=== PATIENT | male | born 1955 | race Asian ===

== ENCOUNTER 2019-03-02 09:54 | Emergency (ER) | payer SELFPAY ==
[2019-03-02] MEDS ORDERED: LIDOCAINE VISCOUS 2% SOLN 15 ML UDC ONE (12:33)
[2019-03-02] MEDS ORDERED: ONDANSETRON 4 MG/2 ML VIAL ONE (12:33)
[2019-03-02] MEDS ORDERED: MAGNE/ALUM HYDROXD 30 ML UCUP ONE (12:33)
[2019-03-02 12:44] LABS: Absolute Lymphocytes (CBC) 0.8 K/uL (0.7-4.9); Absolute Monocytes 0.2 K/uL (0.1-1.3); Absolute Neutrophil 6.5 K/uL (1.8-8.0); Basophils % 0.4 % (0-1.3); Eosinophils % 0.5 % (0-4.4); Hematocrit 49.7 % (39.6-49.0); Lymphocytes % 10.6 % (15.3-44.8); MPV 8.5 fL (7.6-11.3); RBC Red Blood Cell Count 5.51 M/uL (4.33-5.43)
--- NOTE | 2019-03-02 12:59 | RAD REPORT ---
EXAM DESCRIPTION: US - Abdomen Exam Limited - 03/02/2019 12:40 pm CLINICAL HISTORY: Abdominal pain COMPARISON: None. FINDINGS: No gallstones, sludge or other abnormalities within the gallbladder lumen. There is no wal l thickening or pericholecystic fluid. No common duct stone or biliary tree dilatation identified. IMPRESSION: Normal gallbladder and biliary tree ultrasound.
[2019-03-02 13:02] LABS: ALT/SGPT 34 U/L (12-78); AST/SGOT 22 U/L (15-37); Alkaline Phosphatase 74 U/L (45-117); BUN Blood Urea Nitrogen 12 mg/dL (7-18); Bicarbonate 29 mmol/L (21-32); Bilirubin Direct 0.1 mg/dL (0-0.2); Bilirubin Total 0.5 mg/dL (0.2-1.0); Glucose Level 103 mg/dL (74-106); Lipase 166 U/L (73-393); Protein, Total 7.9 g/dL (6.4-8.2); Sodium Level 138 mmol/L (136-145); Troponin (Emerg Dept Use Only) < 0.02 ng/mL (0.0-0.045)
--- NOTE | 2019-03-02 13:44 | EKG ---
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
[2019-03-02 13:47] LABS: Blood Morphology Comment NOT SEEN (NOT SEEN); Platelet Estimate ADEQ; Urine White Blood Cell Casts OK
--- NOTE | 2019-03-02 13:52 | EDPHYS ---
Physician Documentation [facility] Name: River Daniels Age: 64 yrs Sex: Male : 1955 Arrival Date: 03/02/2019 Time: 09:56 Bed 19 Private MD: Unknown, Unknown ED Physician Raf Sears HPI: 03/02 12:09 This 64 yrs old Male presents to ER via Wheelchair with complaints of Chest Pain, rn Abdominal Pain. 12:12 The patient presents with abdominal pain in the epigastric area. Onset: The rn symptoms/episode began/occurred. 12:13 Onset: The symptoms/episode began/occurred 2 month(s) ago. The symptoms radiate to rn chest. Associated signs and symptoms: Pertinent positives: nausea and vomiting, Pertinent negatives: blood in stools, fever. Modifying factors: The symptoms are alleviated by nothing, the symptoms are aggravated by food. Severity of pain: At its worst the pain was mild in the emergency department the pain is unchanged. The patient has experienced similar episodes in the past. Reports 2 months of epigastric burning that radiates to chest, assoc with nausea/vomiting, no black or bloody stool, no sob, reports tried antacid 1 time and only temporary relief. Intermittent pain. Reports abd pain worse approx 30 min or 1 hour after eating.. Historical: - Allergies: 10:15 No Known Allergies; aa5 - Home Meds: 10:15 esomeprazole magnesium oral oral [Active]; aa5 - PMHx: 10:15 None; aa5 - PSHx: 10:15 None; aa5 - Immunization history:: Flu vaccine is not up to date. - Social history:: Smoking status: Patient/guardian denies using tobacco. - Ebola Screening: : No symptoms or risks identified at this time. - Family history:: not pertinent. - Hospitalizations: : No recent hospitalization is reported. ROS: 12:13 Constitutional: Negative for fever, chills, and weight loss, Eyes: Negative for injury, rn pain, redness, and discharge, Neck: Negative for injury, pain, and swelling, Cardiovascular: Negative for palpitations, and edema, Respiratory: Negative for shortness of breath, cough, wheezing, and pleuritic chest pain, Abdomen/GI: + abd pain/nausea/vomiting MS/Extremity: Negative for injury and deformity, Skin: Negative for injury, rash, and discoloration, Neuro: Negative for headache, numbness, tingling, and seizure. Exam: 12:13 Constitutional: Thin male, no acute distress. Head/Face: Normocephalic, atraumatic. rn Eyes: Pupils equal round and reactive to light, extra-ocular motions intact. Lids and lashes normal. Conjunctiva and sclera are non-icteric and not injected. Cornea within normal limits. Periorbital areas with no swelling, redness, or edema. Cardiovascular: Regular rate and rhythm. No pulse deficits. Respiratory: No increased work of breathing, no retractions or nasal flaring. Abdomen/GI: soft, mild epigastric tenderness, no rebound, neg mayo Skin: Warm, dry with normal turgor. Normal color with no rashes, no lesions, and no evidence of cellulitis. MS/ Extremity: Pulses equal, no cyanosis. Neurovascular intact. Full, normal range of motion. Equal circumference. Neuro: Awake and alert, GCS 15, oriented to person, place, time, and situation. Cranial nerves II-XII grossly intact. Motor strength 5/5 in all extremities. Sensory grossly intact. 13:49 ECG was reviewed by the Attending Physician. rn Vital Signs: 10:15 BP 111 / 86; Pulse 89; Resp 16 S; Temp 98.2(TE); Pulse Ox 98% on R/A; Weight 60.33 kg aa5 (R); Height 5 ft. 5 in. (165.10 cm) (R); Pain 8/10; 11:55 BP 125 / 78; Pulse 84; Resp 18; Pulse Ox 99% ; sv 10:15 Body Mass Index 22.13 (60.33 kg, 165.10 cm) aa5 MDM: 11:58 Patient medically screened. rn 13:49 Differential diagnosis: cholecystitis, Cholelithiasis, gastritis, gastroesophageal rn reflux disease, non-specific abd pain, pancreatitis. Data reviewed: vital signs, nurses notes, lab test result(s), EKG, radiologic studies, ultrasound, and as a result, I will discharge patient. Counseling: I had a detailed discussion with the patient and/or guardian regarding: the historical points, exam findings, and any diagnostic results supporting the discharge/admit diagnosis, lab results, radiology results, the need for outpatient follow up, to return to the emergency department if symptoms worsen or persist or if there are any questions or concerns that arise at home. Medical screen evaluation completed. EMTALA emergency medical condition absent. Response to treatment: the patient's symptoms have mildly improved after treatment, and as a result, I will discharge patient. Special discussion: Based on the patient's Hx, exam, and Dx evaluation, there is no indication for emergent surgery or inpatient Tx. It is understood by the patient/guardian that if the Sx's persist or worsen they need to return immediately for re-evaluation. I discussed with the patient/guardian in detail that at this point there is no indication for admission to the hospital. It is understood, however, that if the symptoms persist or worsen the patient needs to return immediately for re-evaluation. 14:00 ED course: Pt states saw doctor last week, recommended endoscopy because he thought was rn GERD, too expensive in [place], patient plans to go to [facility] next month to get endoscopy. . 03/02 12:08 Order name: Basic Metabolic Panel; Complete Time: 13: rn 03/02 12:08 Order name: CBC with Diff; Complete Time: 13:49 rn 03/02 12:08 Order name: Hepatic Function; Complete Time: 13: rn 03/02 12:08 Order name: Lipase; Complete Time: 13: rn 03/02 12:08 Order name: Troponin (emerg Dept Use Only); Complete Time: 13: rn 03/02 12:52 Order name: CBC Smear Scan; Complete Time: 13:49 EDMS 03/02 12:08 Order name: IV Saline Lock; Complete Time: 12:03/02 12:08 Order name: Labs collected and sent; Complete Time: 12: rn 03/02 12:08 Order name: US Abdomen Limited; Complete Time: 13:03/02 12:08 Order name: EKG; Complete Time: 12: rn 03/02 12:08 Order name: EKG - Nurse/Tech; Complete Time: 12:31 rn EC:49 Rate is 77 beats/min. Rhythm is regular. QRS [place] is Normal. [place] interval is normal. QRS rn interval is normal. QT interval is normal. No Q waves. T waves are Normal. No ST changes noted. Clinical impression: Normal ECG. Interpreted by me. Administered Medications: 12:31 Drug: Zofran 4 mg Route: IVP; Site: right antecubital; sv 13:00 Follow up: Response: No adverse reaction; Marked relief of symptoms; Nausea is decreasedsv 13:09 Drug: GI Cocktail without - (Maalox Suspension 30 ml, Lidocaine Liquid 2 % 15 sv ml) Route: PO; 14:05 Follow up: Response: No adverse reaction sv Disposition: 03/02/19 13:51 Discharged to Home. Impression: Gastritis, unspecified, Gastro-esophageal reflux disease. - Condition is Stable. - Discharge Instructions: Gastritis, Adult, Gastroesophageal Reflux Disease, Adult. - Prescriptions for Zantac 300 mg Oral Tablet - take 1 tablet by ORAL route At bedtime; 30 tablet. - Medication Reconciliation Form, Thank You Letter, Antibiotic Education, Prescription Opioid Use form. - Follow up: Richie Potts MD; When: As needed; Reason: Recheck today's complaints, Re-evaluation by your physician. - Problem is an ongoing problem. - Symptoms have improved. Signatures: Dispatcher [employer] Gabi Rivas RN RN sv Nieto, Roman, MD MD rn Calderon, Audri, RN RN aa5 Corrections: (The following items were deleted from the chart) 13:52 13:51 03/02/2019 13:51 Discharged to Home. Impression: Gastritis, unspecified. rn Condition is Stable. Forms are Medication Reconciliation Form, Thank You Letter, Antibiotic Education, Prescription Opioid Use. Follow up: Richie Potts; When: As needed; Reason: Recheck today's complaints, Re-evaluation by your physician. Problem is an ongoing problem. Symptoms have improved. rn 14:08 13:52 03/02/2019 13:51 Discharged to Home. Impression: Gastritis, unspecified; aa5 Gastro-esophageal reflux disease. Condition is Stable. Forms are Medication Reconciliation Form, Thank You Letter, Antibiotic Education, Prescription Opioid Use. Follow up: Richie Potts; When: As needed; Reason: Recheck today's complaints, Re-evaluation by your physician. Problem is an ongoing problem. Symptoms have improved. rn
--- NOTE | 2019-03-02 13:52 | ER ---
Nurse's Notes [facility] Name: River Daniels Age: 64 yrs Sex: Male : 1955 Arrival Date: 03/02/2019 Time: 09:56 Bed 19 Private MD: Unknown, Unknown Diagnosis: Gastritis, unspecified;Gastro-esophageal reflux disease Presentation: 03/02 10:13 Presenting complaint: Patient states: "about 2 months ago I ate some beef and my aa5 stomach started hurting and the doctor gave me esomeprazole". pt c/o abd pain and chest pain described as burning. Reports nausea. Transition of care: patient was not received from another setting of care. Onset of symptoms was 2018. Risk Assessment: Do you want to hurt yourself or someone else? Patient reports no desire to harm self or others. Initial Sepsis Screen: Does the patient meet any 2 criteria? No. Patient's initial sepsis screen is negative. Does the patient have a suspected source of infection? No. Patient's initial sepsis screen is negative. Care prior to arrival: None. 10:13 Method Of Arrival: Wheelchair aa5 10:13 Acuity: TUYET 3 aa5 Historical: - Allergies: 10:15 No Known Allergies; aa5 - Home Meds: 10:15 esomeprazole magnesium oral oral [Active]; aa5 - PMHx: 10:15 None; aa5 - PSHx: 10:15 None; aa5 - Immunization history:: Flu vaccine is not up to date. - Social history:: Smoking status: Patient/guardian denies using tobacco. - Ebola Screening: : No symptoms or risks identified at this time. - Family history:: not pertinent. - Hospitalizations: : No recent hospitalization is reported. Screenin:53 Abuse screen: Denies threats or abuse. Denies injuries from another. Nutritional sv screening: No deficits noted. Tuberculosis screening: No symptoms or risk factors identified. Fall Risk None identified. Assessment: 12:20 General: Appears in no apparent distress. uncomfortable, slender, well developed, sv Behavior is calm, cooperative, appropriate for age. Pain: Complains of pain in epigastric area Pain radiates to chest Pain currently is 8 out of 10 on a pain scale. Quality of pain is described as burning, Pain began 2 months ago Is intermittent. Neuro: Level of Consciousness is awake, alert, obeys commands, Oriented to person, place, time, situation, Moves all extremities. Full function Gait is steady. Cardiovascular: Patient's skin is warm and dry. Respiratory: Airway is patent Respiratory effort is even, unlabored, Respiratory pattern is regular, symmetrical. GI: Reports epigastric pain, nausea, vomiting. Derm: Skin is pink, warm \\T\\ dry. 13:09 Reassessment: Patient appears in no apparent distress at this time. No changes from sv previously documented assessment. Patient and/or family updated on plan of care and expected duration. Pain level reassessed. Patient is alert, oriented x 3, equal unlabored respirations, skin warm/dry/pink. 14:05 Reassessment: Patient is alert, oriented x 3, equal unlabored respirations, skin aa5 warm/dry/pink. Vital Signs: 10:15 BP 111 / 86; Pulse 89; Resp 16 S; Temp 98.2(TE); Pulse Ox 98% on R/A; Weight 60.33 kg aa5 (R); Height 5 ft. 5 in. (165.10 cm) (R); Pain 8/10; 11:55 BP 125 / 78; Pulse 84; Resp 18; Pulse Ox 99% ; sv 10:15 Body Mass Index 22.13 (60.33 kg, 165.10 cm) aa5 ED Course: 09:56 Patient arrived in ED. ag5 09:57 Unknown, Unknown is Private Physician. ag5 10:13 Arm band placed on. aa5 10:14 Triage completed. aa5 10:16 EKG completed in triage. Results shown to MD. 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 dt2 11:53 Gabi Rosa, RN is Primary Nurse. sv 11:53 Patient has correct armband on for positive identification. Placed in gown. Bed in low sv position. Call light in reach. Pulse ox on. NIBP on. Door closed. Head of bed elevated. 11:54 Awaiting ED provider evaluation. sv 11:58 Raf Sears MD is Attending Physician. rn 12:25 Initial lab(s) drawn, by ne, sent to lab. Inserted saline lock: 20 gauge in right sv antecubital area, using aseptic technique. Blood collected. Flushed right antecubital with 5 ml normal saline. Patient maintains SpO2 saturation greater than 95% on room air. 12:32 Patient taken to ultrasound. via wheelchair. sv 12:40 US Abdomen Limited In Process Unspecified. EDMS 13:51 Richie Potts MD is Referral Physician. rn 14:05 No provider procedures requiring assistance completed. IV discontinued, intact, aa5 bleeding controlled, No redness/swelling at site. Pressure dressing applied. Administered Medications: 12:31 Drug: Zofran 4 mg Route: IVP; Site: right antecubital; sv 13:00 Follow up: Response: No adverse reaction; Marked relief of symptoms; Nausea is decreasedsv 13:09 Drug: GI Cocktail without - (Maalox Suspension 30 ml, Lidocaine Liquid 2 % 15 sv ml) Route: PO; 14:05 Follow up: Response: No adverse reaction sv Outcome: 13:51 Discharge ordered by . rn 14:05 Discharged to home ambulatory. aa5 14:05 Condition: stable 14:05 Discharge instructions given to patient, Instructed on discharge instructions, follow up and referral plans. medication usage, Demonstrated understanding of instructions, follow-up care, medications, Prescriptions given X 1. 14:08 Patient left the ED. aa5 Signatures: Dispatcher [employer] EDGabi Araujo RN RN sv Nieto, Roman, MD MD rn Calderon, Audri, RN RN aa5 Tasha Collins dt2 Dany Pierre ag5 Corrections: (The following items were deleted from the chart) 10:16 10:15 BP 111 / 86; Pulse 89bpm; Resp 16bpm; Spontaneous; Pulse Ox 98% RA; Temp 98.2F aa5 Temporal; 60.33 kg Reported; Height 5 ft. 5 in. Reported; BMI: 22.1; aa5
== END 2019-03-02 14:08 | disposition home or self-care (01) ==
LOC: ER 09:54
DX: K21.9 Gastro-esophageal reflux disease without esophagitis (principal); K29.70 Gastritis, unspecified, without bleeding
CPT/HCPCS: 36415; 76705; 80048; 80076; 83690; 84484; 85025; 93005; J2405